=== PATIENT | male | born 2005 | race Caucasian/White ===

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

== ENCOUNTER 2024-06-25 14:47 | Emergency (ER) | payer BC ==
[2024-06-25] MEDS ORDERED: IBUPROFEN 600 MG TAB PO ONE (16:45)
== END 2024-06-25 18:05 | disposition home or self-care (01) ==
LOC: EC 14:47
DX: S83.91XA Sprain of unspecified site of right knee, initial encounter (principal); X50.1XXA Overexertion from prolonged static or awkward postures, initial encounter; Y99.0 Civilian activity done for income or pay; Y92.019 Unspecified place in single-family (private) house as the place of occurrence of the external cause
CPT/HCPCS: 29505; 99282

== ENCOUNTER → 2024-08-01 | Outpatient (CLI) | payer OTHER ==
--- NOTE | 2024-08-02 08:59 | MR ---
EXAMINATION TYPE: MR knee RT wo con DATE OF EXAM: 08/01/2024 COMPARISON: None HISTORY: slip and fall, knee locking and painful for 3 weeks, history of surgical repair to right kne e TECHNIQUE: Multiplanar, multisequence imaging of the right knee is performed without IV contrast. FINDINGS: MEDIAL MENISCUS: Anterior and posterior horns are intact without tear. LATERAL MENISCUS: Anterior and posterior horns are intact without tear. CRUCIATE LIGAMENTS: There is evidence of tibial and femoral condyle with reconstructed ACL. The recon structed ACL is intact however appears slightly thickened. PCL is intact. COLLATERAL LIGAMENTS: The medial collateral ligament and lateral collateral ligament complex are inta ct and unremarkable. EXTENSOR MECHANISM: Visualized quadriceps and patellar tendons are intact. EFFUSION: No significant suprapatellar joint effusion. POPLITEAL CYST: No popliteal/andersen cyst. TRICOMPARTMENT SPACES: Intact CARTILAGE: Intact BONE MARROW SIGNAL: No focal abnormal marrow signal is appreciated. OTHER: No additional significant abnormality is appreciated. IMPRESSION: 1.There is evidence of tibial and femoral condyle with reconstructed ACL. The reconstructed ACL is in tact however appears slightly thickened. PCL is intact.
== END | disposition home or self-care (01) ==
LOC: RADMRIMAIN 13:18
PROVIDERS: ATTEND Orthopaedic Surgery
DX: M25.561 Pain in right knee

== ENCOUNTER 2025-02-03 11:25 | Emergency (ER) | payer BC ==
[2025-02-03 11:41] VITALS: RESP 20
--- NOTE | 2025-02-03 12:36 | ED ---
Neck Injury/Pain HPI - General Chief Complaint: Neck Pain/Injury Stated Complaint: neck pain Time Seen by Provider: 02/03/25 11:27 Source: patient, RN notes reviewed Mode of arrival: ambulatory Limitations: no limitations - History of Present Illness Initial Comments: 19-year-old male presents emergency department chief complaint of neck discomfort on the right side. Patient states that he attempted to move his bed away from the wall by pushing his head against the wall and hanging into the bed he states he is on several times a basket because something falls behind. He states it felt strained the right side of his neck but denies any midline neck pain states with movement and spasm tightening up. Patient is left-hand dominant he denies any headache or dizziness states any movement makes pain worse and it is only in the right side of his neck and the muscle, shoulder region. - Related Data Previous Rx's Medication Instructions Recorded Cyclobenzaprine [Flexeril] 10 mg PO TID PRN #15 tab 02/03/25 Allergies Allergy/AdvReac Type Severity Reaction Status Date / Time No Known Allergies Allergy Verified 02/03/25 11:41 Review of Systems ROS Statement: Those systems with pertinent positive or pertinent negative responses have been documented in the HPI. ROS Other: All systems not noted in ROS Statement are negative. Past Medical History Past Medical History: No Reported History History of Any Multi-Drug Resistant Organisms: None Reported Past Surgical History: No Surgical Hx Reported, Orthopedic Surgery Additional Past Surgical History / Comment(s): Andrews to right leg requiring skin grafts. Past Psychological History: No Psychological Hx Reported Smoking Status: Never smoker, Vaper Past Alcohol Use History: None Reported Past Drug Use History: Marijuana General Exam Limitations: no limitations General appearance: alert, in no apparent distress Head exam: Present: atraumatic, normocephalic, normal inspection Eye exam: Present: normal appearance, PERRL, EOMI. Absent: scleral icterus, conjunctival injection, periorbital swelling ENT exam: Present: normal exam, normal oropharynx, mucous membranes moist Neck exam: Present: normal inspection, tenderness (Right trapezius), full ROM (Pain with range of motion). Absent: meningismus, lymphadenopathy Respiratory exam: Present: normal lung sounds bilaterally. Absent: respiratory distress, wheezes, rales, rhonchi, stridor Cardiovascular Exam: Present: regular rate, normal rhythm, normal heart sounds. Absent: systolic murmur, diastolic murmur, rubs, gallop, clicks Extremities exam: Present: normal inspection, full ROM, normal capillary refill. Absent: tenderness, pedal edema, joint swelling, calf tenderness Course Vital Signs 02/03/25 02/03/25 11:39 13:25 Temperature 98.4 F 97.8 F Pulse Rate 76 77 Respiratory 20 20 Rate Blood Pressure 133/84 136/90 O2 Sat by Pulse 99 100 Oximetry Medical Decision Making - Medical Decision Making Was pt. sent in by a medical professional or institution (, KEESHA, WEB DEVELOPER, urgent care, hospital, or group home...) When possible be specific @ -No Did you speak to anyone other than the patient for history (EMS, parent, family, police, friend...)? What history was obtained from this source @ -No Did you review nursing and triage notes (agree or disagree)? Why? @ -I reviewed and agree with nursing and triage notes Were old charts reviewed (outside hosp., previous admission, EMS record, old EKG, old radiological studies, urgent care reports/EKG's, group home records)? Report findings @ -No old charts were reviewed Differential Diagnosis (chest pain, altered mental status, abdominal pain women, abdominal pain men, vaginal bleeding, weakness, fever, dyspnea, syncope, headache, dizziness, GI bleed, back pain, seizure, CVA, palpatations, mental health, musculoskeletal)? @ -Cervical fracture, neck strain, muscle spasm torticollis EKG interpreted by me (3pts min.). @ -None X-rays interpreted by me (1pt min.). @ -X-ray cervical spine no acute fracture or malalignment CT interpreted by me (1pt min.). @ -None done U/S interpreted by me (1pt. min.). @ -None done What testing was considered but not performed or refused? (CT, X-rays, U/S, labs)? Why? @ -None What meds were considered but not given or refused? Why? @ -None Did you discuss the management of the patient with other professionals (professionals i.e. KEESHA Arrington, WEB DEVELOPER, lab, RT, psych nurse, social work lecturer, farm hand, teacher, peace officer, special education case manager)? Give summary @ -No Was smoking cessation discussed for >3mins.? @ -No Was critical care preformed (if so, how long)? @ -No Were there social determinants of health that impacted care today? How? (Homelessness, low income, unemployed, alcoholism, drug addiction, transportation, low edu. Level, literacy, decrease access to med. care, correction, rehab)? @ -No Was there de-escalation of care discussed even if they declined (Discuss DNR or withdrawal of care, Hospice)? DNR status @ -No What co-morbidities impacted this encounter? (DM, HTN, Smoking, COPD, CAD, Cancer, CVA, ARF, Chemo, Hep., AIDS, mental health diagnosis, sleep apnea, morbid obesity)? @ -None Was patient admitted / discharged? Hospital course, mention meds given and route, prescriptions, significant lab abnormalities, going to OR and other pertinent info. @ -Discharge patient's x-rays were negative patient provided Valium, Lidoderm patch versus help. Patient discussed musculatures at home, warm compresses and gentle stretching Undiagnosed new problem with uncertain prognosis? @ -No Drug Therapy requiring intensive monitoring for toxicity (Heparin, Nitro, Insulin, Cardizem)? @ -No Were any procedures done? @ -No Diagnosis/symptom? @ -Cervical muscle strain, muscle spasm Acute, or Chronic, or Acute on Chronic? @ -Acute Uncomplicated (without systemic symptoms) or Complicated (systemic symptoms)? @ -Uncomplicated Side effects of treatment? @ -No Exacerbation, Progression, or Severe Exacerbation? @ -No Poses a threat to life or bodily function? How? (Chest pain, [place], [place], pneumonia, PE, COPD, DKA, ARF, appy, cholecystitis, CVA, Diverticulitis, Homicidal, Suicidal, threat to staff... and all critical care pts) @ -No Disposition Clinical Impression: Strain of neck muscle, Spasm of cervical paraspinous muscle Disposition: HOME SELF-CARE Condition: Stable Instructions (If sedation given, give patient instructions): Muscle Spasm (ED) Additional Instructions: Please return to the Emergency Department if symptoms worsen or any other concerns. Prescriptions: Cyclobenzaprine [Flexeril] 10 mg PO TID PRN #15 tab PRN Reason: Muscle Spasm Is patient prescribed a controlled substance at d/c from ED?: No Referrals: Arely Jones MD [Primary Care Provider] - 1-2 days Time of Disposition: 13:01
--- NOTE | 2025-02-03 12:52 | XR ---
EXAMINATION TYPE: XR cervical spine comp DATE OF EXAM: 02/03/2025 12:35 PM INDICATION: Patient age:Male; 19 years old; Reason for study: pain; PHH, pain COMPARISON: None TECHNIQUE: The cervical spine was imaged in 4 projections. Frontal, lateral, odontoid and bilateral o blique. FINDINGS: No acute fracture. No disc space narrowing. No spondylolisthesis. Reversal of the normal cervical daniel dosis which may be due to patient position versus muscle spasm. The intervertebral disk spaces are pr eserved. Pedicles are intact. Soft tissues are within normal limits. The odontoid appears intact. IMPRESSION: No fracture or dislocation. [facility], , 02/03/2025 12:49 PM
[2025-02-03] MEDS: LIDOCAINE 4% PATCH TOPICAL ONE (13:02)
[2025-02-03 13:26] VITALS: BP 136/90; PULSE 77; TEMP 97.8
== END 2025-02-03 13:26 | disposition home or self-care (01) ==
LOC: EC 11:25
DX: S16.1XXA Strain of muscle, fascia and tendon at neck level, initial encounter (principal); M62.838 Other muscle spasm; F17.290 Nicotine dependence, other tobacco product, uncomplicated; W19.XXXA Unspecified fall, initial encounter
CPT/HCPCS: 72050; 99283; 96372; J3360